=== PATIENT | male | born 1970 | race Caucasian/White ===

== ENCOUNTER → 2017-04-08 | Outpatient (CLI) | payer OTHER ==
--- NOTE | 2017-04-08 13:18 | XR ---
EXAMINATION TYPE: XR lumbar spine 2 or 3V DATE OF EXAM: 04/08/2017 COMPARISON: NONE HISTORY: Back pain TECHNIQUE: 4 views FINDINGS: Vertebra have normal alignment. Disc spaces are fairly normal. Posterior elements are intac t. There are 4 lumbar type vertebra. Sacroiliac joints appear normal. IMPRESSION: Negative lumbar spine exam.
== END | disposition home or self-care (01) ==
LOC: RADXRMAIN 12:48
PROVIDERS: ATTEND Family Medicine
DX: M54.5 Low back pain (principal)
CPT/HCPCS: 72100

== ENCOUNTER → 2018-01-01 | Outpatient (CLI) | payer OTHER ==
[~2018-01-01] MED LIST: REGADENOSON 0.4 MG/5 ML SYRINGE IV ONE
--- NOTE | 2018-01-01 11:08 | NM ---
EXAMINATION TYPE: NM stress lexiscan cardiolite DATE OF EXAM: 01/01/2018 COMPARISON: NONE HISTORY: Family history ischemic heart disease TECHNIQUE: After the intravenous administration of 10.3 mCi Tc 99m Sestamibi - Cardiolite resting SP ECT images acquired 45 minutes post injection. The patient received 0.4mg Lexiscan, 25.9 mCi Tc 99m Sestamibi - Stress images obtained [address] injection FINDINGS: Review of stress and rest SPECT images demonstrates some decreased reaffirms of uptake along the infe rior wall of the left ventricle more so on rest than on stress images, gut activity is also suspected . Gated analysis shows normal wall motion with an estimated left ventricular ejection fraction of 66 %. IMPRESSION: No scintigraphic evidence for reversible ischemia. Findings along the inferior wall as described may be technical rather than representing infarct.
--- NOTE | 2018-01-01 11:12 | EST ---
EXERCISE STRESS DATE OF SERVICE: 01/01/2018 AGE: 47 SEX: M HT: 73" WT: 190 PROTOCOL: Lexiscan Cardiolite Stress Test. HEART RATE REST: 65 BLOOD PRESSURE REST: 159/91 MAXIMUM HEART RATE ACHIEVED: 120 MAXIMUM BLOOD PRESSURE: 183/63 85% MPHR: 145 100% MPHR: 171 INDICATIONS: Family history. CLINICAL INFORMATION: Baseline rhythm is a sinus mechanism, rate of 65, normal axis and intervals. Normal echocardiogram. Baseline blood pressure 159/91 mmHg. Patient is given injection of Lexiscan. Electrocardiographic monitoring revealed no evidence of diagnostic ischemic ST deviation. Cardiolite was injected per protocol. CONCLUSION: 1. Mild diagnostic electrocardiogram stress testing. 2. Nuclear images will be reported separately. MMODL / IJN: [id number] /
== END | disposition home or self-care (01) ==
LOC: RADNMMAIN 08:33
PROVIDERS: ATTEND Family Medicine
DX: Z01.810 Encounter for preprocedural cardiovascular examination (principal); Z82.49 Family history of ischemic heart disease and other diseases of the circulatory system
CPT/HCPCS: 93017; 78452; A9500; J2785

== ENCOUNTER 2020-06-18 09:45 | Day surgery (SDC) | payer OTHER ==
[2020-06-15 15:44] VITALS: BMI 25.0
[~2020-06-18 09:45] MED LIST changes: +LACTATED RINGERS 1,000 ML IV SCH; -REGADENOSON 0.4 MG/5 ML SYRINGE IV ONE
[2020-06-18 10:27] VITALS: TEMP 98.1
[2020-06-18] MEDS ORDERED: PROPOFOL 10 MG/ML 20 ML VIAL IV ONE (11:24)
--- NOTE | 2020-06-18 12:00 | P.PCN ---
Date of Procedure: 06/18/20 Description of Procedure: BRIEF HISTORY: Patient is a 49-year-old male presenting for outpatient colonoscopy for screening for malignant neoplasm of the colon. No prior colonoscopy reported. No change in bowel habits reported. No family history of colon cancer. PROCEDURE PERFORMED: Colonoscopy. PREOPERATIVE DIAGNOSIS: Screening for malignant neoplasm of the colon, no prior colonoscopy. ESTIMATED BLOOD LOSS: Minimal. IV sedation per Anesthesia. PROCEDURE: After informed consent was obtained, the patient, was brought into the endoscopy unit. IV sedation was administered by Anesthesia under continuous monitoring. Digital rectal examination was normal. Initially the Olympus CF-190 flexible video colonoscope was then inserted in the rectum, gradually advanced into the cecum without any difficulty. Careful examination was performed as the scope was gradually being withdrawn. Ileocecal valve and the appendiceal orifice were visualized and appeared normal. Prep was excellent. Mucosa of the cecum, ascending colon, transverse colon, descending colon, sigmoid colon, and rectum appeared normal. Retroflexion was performed in the rectum and no lesions were seen, low-grade internal hemorrhoids. The patient tolerated the procedure well. IMPRESSION: Normal-appearing colon from rectum to cecum. RECOMMENDATIONS: Findings of this examination were discussed with the patient and his family. Okay to resume diet. Okay to resume medications. Would recommend repeat colonoscopy in 10 years for screening for malignant neoplasm of the colon, or sooner if any signs or symptoms which warrant further evaluation developed.
[2020-06-18 12:21] VITALS: BP 125/73; PULSE 73; RESP 16
== END 2020-06-18 12:36 | disposition home or self-care (01) ==
LOC: ORWHC2ENDO 09:45
PROVIDERS: ATTEND Internal Medicine
DX: Z12.11 Encounter for screening for malignant neoplasm of colon (principal); K64.8 Other hemorrhoids; E78.5 Hyperlipidemia, unspecified; E07.9 Disorder of thyroid, unspecified; Z79.890 Hormone replacement therapy; Z79.899 Other long term (current) drug therapy
CPT/HCPCS: G0121; J2704; 45378

== ENCOUNTER 2021-05-14 09:59 | Day surgery (SDC) | payer OTHER ==
[2021-05-11 14:09] VITALS: BMI 25.7
[2021-05-14 10:36] VITALS: TEMP 97.1
[2021-05-14] MEDS: LACTATED RINGERS 1,000 ML IV SCH ×2 (10:45→11:04)
[2021-05-14] MEDS ORDERED: LIDOCAINE 1% INJ 10MG/ML (20 ML MDV) ONE (11:44)
[2021-05-14] MEDS ORDERED: PROPOFOL 10 MG/ML 20 ML VIAL IV ONE (11:44)
--- NOTE | 2021-05-14 11:52 | P.PCN ---
Date of Procedure: 05/14/21 Procedure(s) Performed: BRIEF HISTORY: Patient is a 50-year-old, pleasant, male scheduled for an upper endoscopy as a part of evaluation of chronic epigastric pain for the last 3 months duration. PROCEDURE PERFORMED: Esophagogastroduodenoscopy with biopsy. PREOPERATIVE DIAGNOSIS: Chronic epigastric pain. IV sedation per anesthesia. PROCEDURE: After informed consent was obtained, the patient was brought into the endoscopy unit. IV sedation was administered by Anesthesia under continuous monitoring. Initially the Olympus GIF-140 video endoscope was inserted into the mouth. Esophagus intubated without any difficulty. It was gradually advanced into the stomach and duodenum and carefully examined. The bulb and the second part of the duodenum appeared normal. The scope at this time was withdrawn to the stomach, adequately insufflated with air, and upon careful examination, mucosa of the antrum,minimal gastritis and biopsies were done from this area. The body, cardia and the fundus appeared normal. The scope was then withdrawn into the esophagus. The GE junction was located at 40 cm from the incisors. small sliding type hiatal hernia. The esophagus appeared normal. There were no erosions or ulcerations seen, biopsies were done from the distal esophagus and the patient tolerated the procedure well. IMPRESSION: 1.Mild antral gastritis and duodenitis 2.Small sliding type hiatal hernia. RECOMMENDATIONS: The findings of this examination were discussed with the patient as well as his family. He was advised to follow with the biopsy results. He can use [id number] H2 blockers as needed for her symptoms..
[2021-05-14 11:58] VITALS: RESP 16
[2021-05-14 12:09] VITALS: BP 151/87; PULSE 56
== END 2021-05-14 12:35 | disposition home or self-care (01) ==
LOC: ORWHC2ENDO 09:59
PROVIDERS: ATTEND Internal Medicine Gastroenterology
DX: K29.80 Duodenitis without bleeding (principal); G89.29 Other chronic pain; D72.10 Eosinophilia, unspecified; K31.9 Disease of stomach and duodenum, unspecified; K44.9 Diaphragmatic hernia without obstruction or gangrene
CPT/HCPCS: 43239; 88305; J2001; J2704

== ENCOUNTER → 2025-03-17 | Outpatient (CLI) | payer OTHER ==
--- NOTE | 2025-03-17 07:44 | CT ---
EXAMINATION TYPE: CT heart w calcium score DATE OF EXAM: 03/17/2025 COMPARISON: Nuclear medicine stress Lexiscan Cardiolite 01/01/2018 CLINICAL INDICATION: Male, 54 years old with history of Z82.49 FAMILY HX OF ISCHEMIA HEART DIS; PHH, Family Hx of heart disease. TECHNIQUE: Prospective Gating was used. Slice thickness: 3mm. Density threshold (HU): 130, Pixel threshold: 3, Algorithm: discrete. CT DLP: 69.[address] CTDI: 3.55 mGy Automated exposure control for dose reduction was used. FINDINGS: CT CALCIUM SCORING Coronary calcium is a marker for plaque (fatty deposits) in a blood vessel or atherosclerosis (harden ing of the arteries). The presence and amount of calcium detected in a coronary artery by the CT sca n, indicates the presence and amount of atherosclerotic plaque. These calcium deposits appear years before the development of heart disease symptoms such as chest pain and shortness of breath. A calcium score is computed for each of the coronary arteries based upon the volume and density of th e calcium deposits. This can be referred to as your calcified plaque burden. It does not correspond directly to the percentage of narrowing in the artery but does correlate with the severity of the un derlying coronary atherosclerosis. RESULTS Region: LM Calcium Score ([place]): 0 Volume (mm3): 0 Mass (g): 0 Region: RCA Calcium Score ([place]): 0 Volume (mm3): 0 Mass (g): 0 Region: LAD Calcium Score ([place]): 0 Volume (mm3): 0 Mass (g): 0 Region: CX Calcium Score ([place]): 0 Volume (mm3): 0 Mass (g): 0 Region: PDA Calcium Score ([place]): 0 Volume (mm3): 0 Mass (g): 0 Total: Calcium Score ([place]): 0 Volume (mm3): 0 Mass (g): 0 TOTAL CALCIUM SCORE: 0 IMPRESSION: Calcium Score: 0 Implication: No identifiable plaque. Risk of Coronary Artery Disease: Very low, generally less than 5%. Left lower lobe solid 5.3 mm pulmonary nodule. According to Fleischner's criteria in a low risk paula ent no follow up is recommended. In a high-risk patient consider optional CT chest in 12 months. CALCIUM SCORE IMPLICATION RISK OF C ORONARY ARTERY DISEASE 0 No identifiable plaque Very low, generally less than 5% 1-10 Minimal identifiable plaque Very unlikely, less than 10% 11-100 Definite, at least mild atherosclerotic plaque Mild or m inimal coronary narrowings likely 101-400 Definite, at least moderate atherosclerotic plaque Mild coronary ar margo disease highly likely, significant narrowing possible 401 or Higher Extensive atherosclerotic plaque High lik elihood of at least one significant coronary narrowing [facility], , 03/17/2025 7:42 AM
== END | disposition home or self-care (01) ==
LOC: RADCTMAIN 06:26
PROVIDERS: ATTEND Family Medicine
DX: Z82.49 Family history of ischemic heart disease and other diseases of the circulatory system (principal)
CPT/HCPCS: 75571